=== PATIENT | male | born 1965 | race Hispanic/Latino ===

== ENCOUNTER 2017-10-30 15:12 | Emergency (ER) | payer OTHER ==
[~2017-10-30] VITALS: Ht 177.8 cm; Wt 83.9 kg
--- OUTSIDE RECORDS SUMMARY | 2017-10-30 15:14 | XMS REPORT ---
Author Author [facility] Address Unknown Phone Unavailable Care Team Providers Care Tube Maker Name Role Phone DELVIN PACHECO Unavailable Unavailable Problems This patient has no known problems. Allergies, Adverse Reactions, Alerts This patient has no known allergies or adverse reactions. Medications This patient has no known medications. Results Test Description Test Time Test Comments Text Results Atomic Results Result Comments CT, ABDOMEN 2017-07-27 14:19:00 Reason for exam:->ABDOMINAL PAINpt in for pain to RLQ area for a week, pain is worse during bm, pt denies vomitingWhat is the patient's sedation requirement?->No Sedation FINAL REPORT ABDOMINAL AND PELVIS CT DATED 07/27/2017 CLINICAL INFORMATION: Abd pain, gastroenteritis or colitis suspectedABDOMINAL PAIN TECHNIQUE: Axial images of the abdomen and pelvis were obtained from diaphragm to the pubic symphysis with intravenous contrast. This exam was performed according to our departmental dose-optimization program, which includes automated exposure control, adjustment of the mA and/or kV according to patient size and/or use of interactive reconstruction technique. COMMENT: Liver and spleen are normal in size without focal abnormality. Gallbladder is contracted. No gallstone or biliary dilatation is noted. Pancreas and adrenals are unremarkable. Both kidneys are normal in size and functioning with prompt bilateral excretion. No hydronephrosis, solid or cystic mass is seen in either kidney. The small and large bowel are optimally evaluated segment to lack of GI contrast. No small large dilatation with thickening is noted. Appendix is normal in caliber. Prostate is normal in size. No mass, adenopathy or ascites is present. IMPRESSION: Unremarkable CT of the abdomen and pelvis. Signed: Geovanny Beckford Verified Date/Time: 07/27/2017 14:19:33 Reading Location: [facility] [id number] CT Body Reading Room REHENSIVE METABOLIC PANEL 2017-07-27 12:47:00 TOTAL PROTEIN (BEAKER) (test vrgs=467) 7.3 gm/dL 6.0-8.5 ALBUMIN (BEAKER) (test vmhh=5297) 4.1 g/dL 3.5-5.0 ALKALINE PHOSPHATASE (BEAKER) (test qwhr=821) 60 U/L 30-115 BILIRUBIN TOTAL (BEAKER) (test hrbm=254) 1.0 mg/dL 0.1-1.2 SODIUM (BEAKER) (test tnfz=570) 146 meq/L 135-148 POTASSIUM (BEAKER) (test ulcy=267) 3.9 meq/L 3.6-5.5 CHLORIDE (BEAKER) (test cpew=309) 103 meq/L 98-106 CO2 (BEAKER) (test fskv=092) 29 meq/L 24-32 BLOOD UREA NITROGEN (BEAKER) (test lfhr=742) 18 mg/dL 10-26 CREATININE (BEAKER) (test ktue=797) 1.03 mg/dL 0.50-1.20 GLUCOSE RANDOM (BEAKER) (test qtlf=168) 143 mg/dL 70-110 CALCIUM (BEAKER) (test chjr=955) 9.3 mg/dL 8.5-10.5 AST (SGOT) (BEAKER) (test dawp=487) 25 U/L 5-40 ALT (SGPT) (BEAKER) (test sfmh=095) 36 U/L 5-50 EGFR (BEAKER) (test etgn=4985) 76 mL/min/1.73 sq m ESTIMATED GFR IS NOT ACCURATE CREATININE CLEARANCE IN PREDICTING GLOMERULAR FILTRATION RATE. ESTIMATED GFR IS NOT APPLICABLE FOR DIALYSIS PATIENTS. [id number] 12:47:00* Test Item Value Reference Range Comments LIPASE (BEAKER) (test jlne=876) 164 U/L 40-240 URINALYSIS W/ [id number] 12:40:00* Test Item Value Reference Range Comments COLOR (BEAKER) (test owjd=988) Yellow CLARITY (BEAKER) (test jbvv=475) Clear SPECIFIC GRAVITY UA (BEAKER) (test nnof=244) 1.015 1.001-1.035 PH UA (BEAKER) (test brjf=737) 7.5 5.0-8.0 PROTEIN UA (BEAKER) (test zzqb=960) Negative Negative GLUCOSE UA (BEAKER) (test kvhl=121) Negative Negative KETONES UA (BEAKER) (test fnpq=792) Negative Negative BILIRUBIN UA (BEAKER) (test rgmq=603) Negative Negative BLOOD UA (BEAKER) (test xcaj=826) Negative Negative NITRITE UA (BEAKER) (test qked=559) Negative Negative LEUKOCYTE ESTERASE UA (BEAKER) (test vilo=109) Negative Negative UROBILINOGEN UA (BEAKER) (test kmus=124) 0.2 mg/dL 0.2-1.0 BACTERIA (BEAKER) (test afju=483) Occasional RBC UA-MANUAL (BEAKER) (test izjp=8101) None Seen /HPF WBC UA-MANUAL (BEAKER) (test qvoj=6931) <5 /HPF SQUAMOUS EPITHELIAL MANUAL (BEAKER) (test jbla=8781) <5 /HPF SOURCE(BEAKER) (test dicw=5667) CBC W/PLT COUNT & AUTO [id number] 12:38:00* Test Item Value Reference Range Comments WHITE BLOOD CELL COUNT (BEAKER) (test ifww=501) 5.0 10e3/ L 4.0-10.0 RED BLOOD CELL COUNT (BEAKER) (test ooiw=953) 5.14 10e6/ L 4.20-5.80 HEMOGLOBIN (BEAKER) (test swxs=260) 14.6 g/dL 13.0-16.8 HEMATOCRIT (BEAKER) (test ddde=485) 42.7 % 40.0-50.0 MEAN CORPUSCULAR VOLUME (BEAKER) (test nwnm=996) 83.1 fL 82.0-98.0 MEAN CORPUSCULAR HEMOGLOBIN (BEAKER) (test wxct=867) 28.4 pg 27.0-33.0 MEAN CORPUSCULAR HEMOGLOBIN CONC (BEAKER) (test ejpo=431) 34.1 g/dL 32.0- 36.0 RED CELL DISTRIBUTION WIDTH (BEAKER) (test rlvv=243) 12.6 % 10.3-14.2 PLATELET COUNT (BEAKER) (test ujwn=803) 252 10e3/ L 150-430 MEAN PLATELET VOLUME (BEAKER) (test ppzm=222) 7.6 fL 6.5-10.5 NEUTROPHILS RELATIVE PERCENT (BEAKER) (test cchz=212) 59 % LYMPHOCYTES RELATIVE PERCENT (BEAKER) (test zgyt=409) 29 % MONOCYTES RELATIVE PERCENT (BEAKER) (test ffkc=437) 9 % EOSINOPHILS RELATIVE PERCENT (BEAKER) (test onqb=392) 3 % BASOPHILS RELATIVE PERCENT (BEAKER) (test thrd=779) 1 % NEUTROPHILS ABSOLUTE COUNT (BEAKER) (test octk=047) 2.96 10e3/ L 1.80-8.00 LYMPHOCYTES ABSOLUTE COUNT (BEAKER) (test xisl=004) 1.44 10e3/ L 1.48-4.50 MONOCYTES ABSOLUTE COUNT (BEAKER) (test mjgm=451) 0.43 10e3/ L 0.00-1.30 EOSINOPHILS ABSOLUTE COUNT (BEAKER) (test fwqt=702) 0.13 10e3/ L 0.00-0.50 BASOPHILS ABSOLUTE COUNT (BEAKER) (test bwej=586) 0.02 10e3/ L 0.00-0.20
[2017-10-30] MEDS ORDERED: MORPHINE SULFATE 4 MG/ML SYR IV STA (15:33)
[2017-10-30] MEDS ORDERED: DIATRIZOATE MEGL/DIATRIZOA SOD 30 ML BTL PO ONE (16:07)
[2017-10-30 16:50] LABS: BASOPHILS % 0.5 % (0.0-1.0); EOSINOPHILS # (AUTO) 0.1 (0.0-0.4); EOSINOPHILS % 0.8 % (0.0-6.0); HEMATOCRIT 47.9 % (38.2-49.6); HEMOGLOBIN 16.6 g/dL (14.0-18.0); LYMPHOCYTES # (AUTO) 0.2 (1.0-3.2); LYMPHOCYTES % 3.7 % (18.0-39.1); MEAN CORPUSCULAR HEMOGLOBIN 28.5 pg (28-32); MEAN CORPUSCULAR HGB CONC 34.7 g/dL (31-35); MEAN CORPUSCULAR VOLUME 82.3 fL (81-99); MONOCYTES # (AUTO) 0.3 (0.2-0.8); MONOCYTES % 4.7 % (4.4-11.3); NEUTROPHILS # (AUTO) 5.9 (2.1-6.9); PLATELET COUNT 250 x10e3/uL (140-360); RED BLOOD COUNT 5.82 x10e6/uL (4.3-5.7); RED CELL DISTRIBUTION WIDTH 12.7 % (11.7-14.4)
[2017-10-30] MEDS: SODIUM CHLORIDE 0.9% 1000ML 1,000 ML IV STA (16:57)
[2017-10-30] MEDS: ONDANSETRON HCL INJ 2 MG/ML VIAL IV STA (16:57)
[2017-10-30 17:09] LABS: COLOR,URINE YELLOW (YELLOW); KETONES,URINE 1+ (NEGATIVE); LEUKOCYTE ESTERASE ,URINE NEGATIVE (NEGATIVE); NITRITE,URINE NEGATIVE (NEGATIVE); PROTEIN,URINE DIPSTICK NEGATIVE (NEGATIVE); URINE UROBILINOGEN 0.2 mg/dL (0.2 - 1)
[2017-10-30 17:10] LABS: ALANINE AMINOTRANSFERASE 30 IU/L (0-55); ALBUMIN 4.4 g/dL (3.5-5.0); ALBUMIN/GLOBULIN RATIO 1.3 (0.8-2.0); ALKALINE PHOSPHATASE 72 IU/L (40-150); AMYLASE 67 U/L (25-125); ANION GAP 13.2 mmol/L (8-16); BLOOD UREA NITROGEN 20 mg/dL (7-26); BUN/CREATININE RATIO 16 (6-25); CALCIUM 9.8 mg/dL (8.4-10.2); CARBON DIOXIDE 27 mmol/L (22-29); CHLORIDE 103 mmol/L (98-107); CREATININE, SERUM 1.24 mg/dL (0.72-1.25); EST GLOMERULAR FILTRATION RATE > 60 ML/MIN (60-); GLUCOSE 162 mg/dL (74-118); LIPASE 19 U/L (8-78); POTASSIUM 4.2 mmol/L (3.5-5.1); SODIUM 139 mmol/L (136-145)
[2017-10-30 17:16] LABS: BILIRUBIN,URINE 1+ (NEGATIVE); CLARITY,URINE SL CLOUDY (CLEAR)
[2017-10-30 17:22] LABS: MUCUS,URINE FEW (RARE); RBC,URINE 0-5 /HPF (0-5); WBC,URINE (MAN) 0-5 /HPF (0-5)
--- NOTE | 2017-10-30 18:27 | Diagnostic Imaging Report ---
PROCEDURE: CT ABDOMEN AND PELVIS WITH CONTRAST TECHNIQUE: The abdomen and pelvis were scanned utilizing a multidetector helical scanner from the diaphragm to the lesser trochanter after the IV administration of 100 cc of Isovue 370 and the oral administration of dilute Gastrografin. Coronal and sagittal multiplanar reformations were obtained. COMPARISON: None. INDICATIONS: ABDOMINAL PAIN NAUSEA FINDINGS: LOWER THORAX: Unremarkable. HEPATOBILIARY: No focal hepatic lesions. No biliary ductal dilatation. Gallbladder is unremarkable SPLEEN: No splenomegaly. PANCREAS: No focal masses or ductal dilatation. ADRENALS: 8mm fat containing lesion in the left adrenal gland, consistent with a small myelolipoma. No other focal lesions. KIDNEYS/URETERS: No hydronephrosis, stones, or solid mass lesions. PELVIC ORGANS/BLADDER: Bladder and prostate are unremarkable. PERITONEUM / RETROPERITONEUM: No free air or fluid. LYMPH NODES: No lymphadenopathy. VESSELS: Unremarkable. GI TRACT: No bowel dilation or evidence of obstruction. Appendix is well identified and normal in caliber. No pericolonic inflammatory changes. BONES AND SOFT TISSUES: Nonaggressive lytic lesion. Mild degenerative changes in the sacroiliac joints. Soft tissues are grossly unremarkable. IMPRESSION: 1. No acute abdominopelvic abnormalities. No bowel dilation or evidence of obstruction. 2. 8mm left adrenal myelolipoma. No further diagnostic or followup imaging is indicated for this small benign lesion. Robbie Miller M.D. Dictated by: Robbie Miller M.D. on 10/30/2017 at 18:28 Electronically approved by: Robbie Miller M.D. on 10/30/2017 at 18:28
[2017-10-30 19:05] VITALS: BP 125/71
[2017-10-30] MEDS ORDERED: SODIUM CHLORIDE 0.9% 50ML 50 ML ONE (22:26)
[2017-10-30] MEDS ORDERED: IOPAMIDOL 370 MG/ML 200 ML INFUS..BTL INJ ONE (22:26)
== END 2017-10-30 19:12 | disposition home or self-care (01) ==
LOC: ER 15:12
DX: K29.00 Acute gastritis without bleeding (principal); R00.0 Tachycardia, unspecified
CPT/HCPCS: 36415; 74177; 80053; 81001; 82150; 82948; 83690; 85025; 99284; J2405; J7030; Q9967

== ENCOUNTER 2023-10-15 11:11 | Emergency (ER) | payer OTHER ==
[~2023-10-15] VITALS: Ht 177.8 cm; Wt 83.9 kg
[2023-10-15 11:50] VITALS: O2SAT 98
[2023-10-15 12:51] LABS: BASOPHILS # (AUTO) 0.1 (0.0-0.1); BASOPHILS % 1.1 % (0.0-1.0); EOSINOPHILS # (AUTO) 0.7 (0.0-0.4); EOSINOPHILS % 12.1 % (0.0-6.0); HEMATOCRIT 45.3 % (38.2-49.6); LYMPHOCYTES # (AUTO) 1.1 (1.0-3.2); LYMPHOCYTES % 20.7 % (18.0-39.1); MEAN CORPUSCULAR HEMOGLOBIN 27.7 pg (28-32); MEAN CORPUSCULAR HGB CONC 30.9 g/dL (31-35); MEAN CORPUSCULAR VOLUME 89.5 fL (81-99); MONOCYTES # (AUTO) 0.7 (0.2-0.8); MONOCYTES % 11.9 % (4.4-11.3); PLATELET COUNT 237 x10e3/uL (140-360); RED BLOOD COUNT 5.06 x10e6/uL (4.3-5.7); RED CELL DISTRIBUTION WIDTH 13.7 % (11.7-14.4); WHITE BLOOD COUNT 5.47 x10e3/uL (4.8-10.8)
[2023-10-15] MEDS: SODIUM CHLORIDE 0.9% 1000ML 1,000 ML IV STA (13:02)
[2023-10-15 13:26] LABS: ALBUMIN 3.2 g/dL (3.5-5.0); ALBUMIN/GLOBULIN RATIO 1.1 (0.8-2.0); ANION GAP 12.8 mmol/L (8-16); BILIRUBIN,TOTAL 0.4 mg/dL (0.2-1.2); CALCIUM 9.1 mg/dL (8.4-10.2); CREATININE, SERUM 1.17 mg/dL (0.72-1.25); POTASSIUM 4.8 mmol/L (3.5-5.1); TOTAL PROTEIN 6.1 g/dL (6.5-8.1)
[2023-10-15 15:31] LABS: BILIRUBIN,URINE NEGATIVE (NEGATIVE); CLARITY,URINE CLEAR (CLEAR); COLOR,URINE YELLOW (YELLOW); GLUCOSE, URINE 500 (NEGATIVE); KETONES,URINE 1+ (NEGATIVE); LEUKOCYTE ESTERASE ,URINE NEGATIVE (NEGATIVE); NITRITE,URINE NEGATIVE (NEGATIVE); PH,URINE 5.5 (5 - 7); PROTEIN,URINE DIPSTICK NEGATIVE (NEGATIVE); URINE UROBILINOGEN 0.2 mg/dL (0.2 - 1)
[2023-10-15 15:37] LABS: BACTERIA,URINE FEW /HPF; EPITHELIAL CELLS,URINE FEW /LPF; RBC,URINE 0-5 /HPF (0-5)
[2023-10-15 15:41] LABS: MUCUS,URINE FEW (RARE)
== END 2023-10-15 16:11 | disposition home or self-care (01) ==
LOC: ER 12:30
DX: R53.83 Other fatigue (principal); R10.13 Epigastric pain; I10 Essential (primary) hypertension; E11.9 Type 2 diabetes mellitus without complications; E78.5 Hyperlipidemia, unspecified; Z11.52 Encounter for screening for COVID-19; Z85.53 Personal history of malignant neoplasm of renal pelvis
CPT/HCPCS: 36415; 80053; 81001; 82550; 83690; 83735; 85025; 87086; 87400; 99284; J7030; U0002

== ENCOUNTER 2024-02-04 19:04 | Emergency (ER) | payer OTHER ==
[~2024-02-04] VITALS: Ht 172.7 cm; Wt 79.4 kg
[2024-02-04 20:09] VITALS: PULSE 96; RESP 15; TEMP 98.2
[2024-02-04 20:19] LABS: BASOPHILS % 0.5 % (0.0-1.0); EOSINOPHILS # (AUTO) 1.7 (0.0-0.4); EOSINOPHILS % 19.9 % (0.0-6.0); HEMATOCRIT 37.4 % (38.2-49.6); HEMOGLOBIN 12.2 g/dL (14.0-18.0); LYMPHOCYTES # (AUTO) 1.1 (1.0-3.2); LYMPHOCYTES % 12.8 % (18.0-39.1); MEAN CORPUSCULAR HEMOGLOBIN 27.6 pg (28-32); MEAN CORPUSCULAR HGB CONC 32.6 g/dL (31-35); MEAN CORPUSCULAR VOLUME 84.6 fL (81-99); MONOCYTES # (AUTO) 0.8 (0.2-0.8); NEUTROPHILS # (AUTO) 4.8 (2.1-6.9); NEUTROPHILS % 57.6 % (38.7-80.0); PLATELET COUNT 255 x10e3/uL (140-360); RED BLOOD COUNT 4.42 x10e6/uL (4.3-5.7); RED CELL DISTRIBUTION WIDTH 14.1 % (11.7-14.4); WHITE BLOOD COUNT 8.36 x10e3/uL (4.8-10.8)
[2024-02-04 20:36] LABS: ALANINE AMINOTRANSFERASE 19 IU/L (0-55); ALBUMIN 3.7 g/dL (3.5-5.0); ALBUMIN/GLOBULIN RATIO 1.1 (0.8-2.0); ALKALINE PHOSPHATASE 79 IU/L (40-150); ANION GAP 17.2 mmol/L (8-16); BILIRUBIN,TOTAL 0.5 mg/dL (0.2-1.2); BLOOD UREA NITROGEN 43 mg/dL (7-26); BUN/CREATININE RATIO 22 (6-25); CALCIUM 9.4 mg/dL (8.4-10.2); CARBON DIOXIDE 17 mmol/L (22-29); CHLORIDE 109 mmol/L (98-107); CREATINE KINASE 65 IU/L (30-200); CREATININE, SERUM 1.99 mg/dL (0.72-1.25); EST GLOMERULAR FILTRATION RATE 38 ML/MIN (>=60); GLUCOSE 168 mg/dL (74-118); POTASSIUM 4.2 mmol/L (3.5-5.1); SODIUM 139 mmol/L (136-145)
[2024-02-04 20:42] LABS: TROPONIN I < 0.001 ng/mL (0-0.300)
[2024-02-04] MEDS: SODIUM CHLORIDE 0.9% 1000ML 1,000 ML IV STA (21:33)
[2024-02-04] MEDS ORDERED: SODIUM CHLORIDE 0.9% 1000ML 1,000 ML ONE (21:36)
[2024-02-04 23:07] VITALS: BP 132/75; PULSE 74; RESP 19; TEMP 97.7; O2SAT 100
== END 2024-02-04 23:20 | disposition home or self-care (01) ==
LOC: ER 19:18
DX: R42 Dizziness and giddiness (principal); E11.22 Type 2 diabetes mellitus with diabetic chronic kidney disease; I12.9 Hypertensive chronic kidney disease with stage 1 through stage 4 chronic kidney disease, or unspecified chronic kidney disease; N18.9 Chronic kidney disease, unspecified; Z85.528 Personal history of other malignant neoplasm of kidney; Z88.1 Allergy status to other antibiotic agents; Z88.8 Allergy status to other drugs, medicaments and biological substances; Z11.52 Encounter for screening for COVID-19; Z95.810 Presence of automatic (implantable) cardiac defibrillator
CPT/HCPCS: 36415; 70450; 71045; 80053; 82550; 83690; 83880; 84484; 85025; 93005; 99284; J7030; U0002